=== PATIENT | female | born 1950 | race Caucasian/White ===

== ENCOUNTER 2020-08-31 16:43 | Emergency (ER) | payer MEDICARE, SELFPAY ==
[2020-08-31 16:49] VITALS: BP 148/84; PULSE 74; RESP 18; TEMP 36.3; O2SAT 98; BMI 25.9
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
[2020-08-31] MEDS: sodium chloride 0.9% 1,000 ML 999 ML IV (18:13)
[2020-08-31 18:29] VITALS: RESP 18
[2020-08-31] MEDS: morphine 4 mg/mL SDV 1 mL 2 MG IVP (18:29)
[2020-08-31 19:11] LABS: Hematocrit 45.3 % (37.0-47.0); Hemoglobin 14.5 g/dL (11.5-15.3); Mean Corpuscular Hemoglobin 30.6 pg (28.0-34.0); Mean Corpuscular Volume 95.6 fL (81-99); Mean Platelet Volume 10.6 fL (7.4-10.4); Platelet Count 367 10^3/cmm (130-400); Red Blood Count 4.74 10^6/uL (4.1-5.3); Red Cell Distribution Width 12.1 % (12.1-15.1); White Blood Count 9.7 10^3/uL (4.0-10.0)
[2020-08-31] MEDS: LORazepam 2 mg/mL INJ 1 mL 1 MG IVP (19:21)
[2020-08-31 19:22] VITALS: BP 121/62; PULSE 77; RESP 16; O2SAT 94
[2020-08-31 19:34] LABS: Alanine Aminotransferase 25 U/L (0-33); Albumin Level 4.5 g/dL (3.5-5.2); Alkaline Phosphatase 91 IU/L (35-105); Anion Gap 15.7 (5-19); Aspartate Amino Transferase 36 U/L (0-32); Blood Urea Nitrogen 13 mg/dL (8-23); Calcium 9.2 mg/dL (8.5-10.5); Carbon Dioxide 27 mmol/L (22-29); Chloride 99 mmol/L (98-107); Globulin 2.6 g/dL (1.3-4.6); Glucose 143 mg/dL (65-115); Osmolality Calculated 289 mOsm/kg (285-295); Potassium 3.7 mmol/L (3.5-5.1); Sodium 138 mmol/L (136-145); Total Bilirubin 0.9 mg/dL (0.15-1.2); Total Protein 7.1 g/dL (6.6-8.7)
[2020-08-31 19:44] LABS: Alcohol Level < 10 mg/dL (0-10)
[2020-08-31 19:54] LABS: Slide Review Slide Review Perform
[2020-08-31 19:57] LABS: Troponin T (5th) Once 7 ng/L (0-10)
[2020-08-31 20:19] LABS: Add Urine Culture? No; Add Urine Microscopic? YES; Bacteria Urine TRACE /hpf; Bilirubin Urine Neg (Negative); Blood Urine 2+ (Negative); Glucose Urine UA Norm (Normal); Ketones Urine Negative (Negative); Leukocyte Esterase Urine Negative (Negative); Mucus Urine 2+ /hpf; Nitrate Urine Negative (Negative); Protein Urine Neg (Negative); Squamous Epithelial Cell Urine 0-4 /hpf (0-5); Urine Appearance Clear (CLEAR); Urine Color Yellow (Yellow); Urobilinogen Urine Norm (Negative)
[2020-08-31 20:21] VITALS: BP 147/96
[2020-08-31 20:38] LABS: Absolute Segmented Neutrophil 5.8 10/cmm (1.6-7.1); Band Neutrophils Absolute 0.3 10^3/cmm (0.0-1.2); Lymphocytes 29 %; Monocytes Absolute 0.6 10^3/cmm (0.1-0.6); Segmented Neutrophils 60 %; Total Cells Counted 100 (0-100)
[2020-08-31 20:39] LABS: Absolute Neutrophil 6.1 10^3/cmm (1.4-6.5); Eosinophils 0 %; Platelet Estimate Normal (Normal)
--- NOTE | 2020-09-01 11:21 | DCPLANNER ---
Addendum entered by Paulina Almendarez 09/02/20 14:19: Katie from ortho called foster care case manager stating that when patient was called to schedule a follow up appointment, that patient does not want an appointment at this time. Original Note: chemical manager had message to schedule a follow up appointment for patient with ortho. chemical manager called the ortho clinic, spoke with Davey, gave clinic patients information. chemical manager was told that patients information would be printed and reviewed. Clinic will call patient with appointment information.
== END 2020-08-31 21:17 | disposition left against medical advice (07) ==
PROVIDERS: Emergency Provider Family Medicine; PCP Internal Medicine
DX: S32.001A Stable burst fracture of unspecified lumbar vertebra, initial encounter for closed fracture (principal); V49.9XXA Car occupant (driver) (passenger) injured in unspecified traffic accident, initial encounter; Z53.21 Procedure and treatment not carried out due to patient leaving prior to being seen by health care provider
CPT/HCPCS: 12345; 70450; 70486; 71250; 72125; 74176; 80053; 80307; 81001; 84484; 85007; 85025; 96361; 96374; 96375; 99282; 99284; J2060; J2270; J7030

== ENCOUNTER → 2023-02-05 13:25 | Outpatient (BNVA) | payer MEDICARE, SELFPAY | PROVIDERS: PCP Family Medicine; Visit Provider Family Medicine | DX: E53.8 Deficiency of other specified B group vitamins (principal); E03.9 Hypothyroidism, unspecified; I10 Essential (primary) hypertension; Z13.220 Encounter for screening for lipoid disorders; E55.9 Vitamin D deficiency, unspecified; Z51.81 Encounter for therapeutic drug level monitoring | CPT/HCPCS: 80053; 80061; 82306; 82607; 84439; 84443; 85025 ==

== ENCOUNTER → 2023-04-02 15:58 | Outpatient (BNVA) | payer MEDICARE, SELFPAY | PROVIDERS: PCP Family Medicine; Visit Provider Family Medicine | DX: E03.9 Hypothyroidism, unspecified (principal); M25.50 Pain in unspecified joint | CPT/HCPCS: 84439; 84443; 86038; 86141 ==

== ENCOUNTER → 2023-05-02 11:01 | Outpatient (BNVA) | payer MEDICARE, SELFPAY | PROVIDERS: PCP Family Medicine; Visit Provider Family Medicine | DX: E03.9 Hypothyroidism, unspecified (principal); I10 Essential (primary) hypertension; Z13.220 Encounter for screening for lipoid disorders; E53.8 Deficiency of other specified B group vitamins; E55.9 Vitamin D deficiency, unspecified; R53.81 Other malaise; R53.83 Other fatigue; Z51.81 Encounter for therapeutic drug level monitoring; M25.50 Pain in unspecified joint | CPT/HCPCS: 80053; 80061; 82306; 82607; 83540; 83550; 83735; 84439; 84443 ==

== ENCOUNTER → 2023-09-19 14:31 | Outpatient (BNVA) | payer MEDICARE, SELFPAY | PROVIDERS: PCP Family Medicine; Visit Provider Nurse Practitioner | DX: R30.0 Dysuria (principal) | CPT/HCPCS: 81000 ==

== ENCOUNTER → 2023-10-18 12:13 | Outpatient (BNVA) | payer MEDICARE, SELFPAY | PROVIDERS: PCP Family Medicine; Visit Provider Family Medicine | DX: E03.9 Hypothyroidism, unspecified (principal); R73.09 Other abnormal glucose; Z51.81 Encounter for therapeutic drug level monitoring | CPT/HCPCS: 80053; 83036; 84439; 84443; 85025 ==

== ENCOUNTER 2023-12-10 10:42 | Outpatient (CLI) | payer MEDICARE, SELFPAY ==
--- NOTE | 2023-12-10 10:47 | XR_ITS ---
WS: [email or web address] Exam: XR hip BI 2V wo/w pel [id number] Date/Time of Exam: 12/10/2023 10:48 AM Reason For Exam: Hip pain LEFT hip. Mild to moderate degenerative change. No fracture or dislocation. Periarticular calcificati on along the superior lateral joint. IMPRESSION: 1. Mild to moderate DJD. Periarticular calcification. 2. No fracture. RIGHT hip. Mild to moderate degenerative change. No fracture or dislocation. Normal soft tissues. IMPRESSION: 1. Mild to moderate DJD.
--- NOTE | 2023-12-10 10:47 | XR_ITS ---
WS: [email or web address] Exam: XR shoulder LT 1V [id number] Date/Time of Exam: 12/10/2023 10:48 AM Reason For Exam: Shoulder pain No fracture or dislocation. Mild DJD of the AC joint. Osteopenia. Normal soft tissues. IMPRESSION: 1. Mild AC joint DJD. Osteopenia.
--- NOTE | 2023-12-10 10:47 | XR_ITS ---
WS: [email or web address] Exam: XR knee LT 3V* [id number] Date/Time of Exam: 12/10/2023 10:48 AM Reason For Exam: Knee pain No acute fracture or dislocation. Moderate degenerative narrowing of the medial joint compartment. No joint effusion. Normal soft tissues. IMPRESSION: 1. Moderate degenerative changes in the medial joint compartment. 2. No fracture or dislocation. Kellgren-Cooper Cooper grade of 2.
--- NOTE | 2023-12-10 10:47 | XR_ITS ---
WS: [email or web address] Exam: XR shoulder RT 1V [id number] Date/Time of Exam: 12/10/2023 10:48 AM Reason For Exam: Shoulder pain No fracture or dislocation. Mild AC joint DJD. Osteopenia. IMPRESSION1. No fracture. 2. Mild AC joint DJD. Osteopenia.
--- NOTE | 2023-12-10 10:47 | XR_ITS ---
WS: [email or web address] Exam: XR knee RT 3V* [id number] Date/Time of Exam: 12/10/2023 10:48 AM Reason For Exam: Knee pain There appears to be a healing nondisplaced fracture of the upper fibula. No other fractures. There is moderate tricompartmental DJD of the RIGHT knee most marked involving the medial compartment. No aileen nt effusion identified. Normal soft tissues. IMPRESSION: 1. Healing nondisplaced upper fibular fracture. 2. Degenerative changes of the RIGHT knee.
--- NOTE | 2023-12-10 10:47 | XR_ITS ---
WS: [email or web address] Exam: XR lumbar spine 2-3V* [id number] Date/Time of Exam: 12/10/2023 10:48 AM Reason For Exam: Low back pain Compared to abdominal CT performed 08/31/2020. A healed compression fracture of L3 is noted with about 40% loss of vertebral height and no significa nt posterior displacement. No acute fractures are identified. Degenerative disc narrowing at L4-5. Sl ight spondylosis. Mild facet DJD at L4-5 and L5-S1. Moderate levoscoliosis. Osteopenia. IMPRESSION: 1. Healed biconcave compression fracture of L3 with about 40% loss in vertebral height and no signifi cant posterior displacement. 2. Degenerative changes, osteopenia and levoscoliosis.
--- NOTE | 2023-12-10 10:47 | XR_ITS ---
WS: [id number] Exam: XR cervical spine 3V* [id number] Date/Time of Exam: 12/10/2023 10:48 AM Reason For Exam: cervical neck pain No acute fracture or dislocation. There is straightening and reversal of the normal cervical C curve. Thinning of the C5-6 disc. This might be developmental. Spondylosis from C4-C7. Mild facet DJD at a ll levels. Paraspinal soft tissues are unremarkable. The odontoid is intact. Left-sided carotid arter y calcifications noted. IMPRESSION1. No acute fracture or malalignment. 2. Straightening and reversal of the normal cervical C curve. Degenerative changes.
== END 2023-12-10 10:43 | disposition home or self-care (01) ==
LOC: RAD 10:43
PROVIDERS: PCP Family Medicine; Visit Provider Family Medicine
DX: M54.2 Cervicalgia (principal); M54.50 Low back pain, unspecified; M25.511 Pain in right shoulder; M25.512 Pain in left shoulder; M25.551 Pain in right hip; M25.552 Pain in left hip; M25.561 Pain in right knee; M25.562 Pain in left knee; M47.812 Spondylosis without myelopathy or radiculopathy, cervical region; M19.012 Primary osteoarthritis, left shoulder; M19.011 Primary osteoarthritis, right shoulder; M85.812 Other specified disorders of bone density and structure, left shoulder; M85.811 Other specified disorders of bone density and structure, right shoulder; M51.36 Other intervertebral disc degeneration, lumbar region; M41.86 Other forms of scoliosis, lumbar region; Z87.81 Personal history of (healed) traumatic fracture; M16.0 Bilateral primary osteoarthritis of hip; M17.0 Bilateral primary osteoarthritis of knee
CPT/HCPCS: 72040; 72100; 73020; 73521; 73562

== ENCOUNTER → 2024-03-05 15:13 | Outpatient (BNVA) | payer MEDICARE, SELFPAY | PROVIDERS: PCP Family Medicine; Visit Provider Family Medicine | DX: Z51.81 Encounter for therapeutic drug level monitoring (principal); R06.02 Shortness of breath; E03.9 Hypothyroidism, unspecified | CPT/HCPCS: 80053; 84439; 84443; 84484; 85025; 85379 ==

== ENCOUNTER → 2024-03-23 17:00 | Outpatient (BNVA) | payer MEDICARE, SELFPAY | PROVIDERS: PCP Family Medicine; Visit Provider Emergency Medicine | DX: R30.0 Dysuria (principal); R53.1 Weakness; J06.9 Acute upper respiratory infection, unspecified | CPT/HCPCS: 81000; 87086; 87426 ==

== ENCOUNTER → 2024-04-21 12:32 | Outpatient (BNVA) | payer MEDICARE, SELFPAY | PROVIDERS: PCP Family Medicine; Visit Provider Family Medicine | DX: E03.9 Hypothyroidism, unspecified; I10 Essential (primary) hypertension; Z51.81 Encounter for therapeutic drug level monitoring | CPT/HCPCS: 80061; 83036; 84439; 84443; 85025; 86141 ==

== ENCOUNTER → 2024-06-04 14:08 | Outpatient (BNVA) | payer OTHER, SELFPAY | PROVIDERS: PCP Family Medicine | DX: R39.9 Unspecified symptoms and signs involving the genitourinary system (principal) | CPT/HCPCS: 81000 ==

== ENCOUNTER → 2024-09-25 10:05 | Outpatient (BNVA) | payer MEDICARE, SELFPAY | PROVIDERS: PCP Family Medicine; Visit Provider Registered Nurse Neonatal Intensive Care | DX: R05.9 Cough, unspecified (principal) | CPT/HCPCS: 87400 ==

== ENCOUNTER → 2024-09-29 11:18 | Outpatient (BNVA) | payer MEDICARE, SELFPAY | PROVIDERS: PCP Family Medicine; Visit Provider Family Medicine | DX: Z51.81 Encounter for therapeutic drug level monitoring (principal); Z13.6 Encounter for screening for cardiovascular disorders; E03.9 Hypothyroidism, unspecified; E55.9 Vitamin D deficiency, unspecified; E53.8 Deficiency of other specified B group vitamins; R73.09 Other abnormal glucose; Z13.220 Encounter for screening for lipoid disorders; J40 Bronchitis, not specified as acute or chronic; N39.0 Urinary tract infection, site not specified; F41.9 Anxiety disorder, unspecified; F32.A Depression, unspecified; I10 Essential (primary) hypertension; L82.1 Other seborrheic keratosis | CPT/HCPCS: 80053; 80061; 82306; 82607; 83036; 84439; 84443; 85025 ==

== ENCOUNTER → 2024-12-24 09:39 | Outpatient (BNVA) | payer MEDICARE, SELFPAY | PROVIDERS: PCP Family Medicine; Visit Provider Emergency Medicine | DX: R39.9 Unspecified symptoms and signs involving the genitourinary system (principal) | CPT/HCPCS: 81000; 87086 ==

== ENCOUNTER → 2025-04-02 08:47 | Outpatient (BNVA) | payer MEDICARE, SELFPAY | PROVIDERS: PCP Family Medicine; Visit Provider Family Medicine Adult Medicine | DX: R39.9 Unspecified symptoms and signs involving the genitourinary system (principal) | CPT/HCPCS: 81000 ==

== ENCOUNTER → 2025-05-01 14:49 | Outpatient (BNVA) | payer MEDICARE, SELFPAY | PROVIDERS: PCP Family Medicine; Visit Provider Nurse Practitioner | DX: R39.9 Unspecified symptoms and signs involving the genitourinary system (principal) | CPT/HCPCS: 81000; 87086 ==

== ENCOUNTER → 2025-05-10 11:56 | Outpatient (BNVA) | payer MEDICARE, SELFPAY | PROVIDERS: PCP Family Medicine; Visit Provider Family Medicine | DX: E53.8 Deficiency of other specified B group vitamins (principal); E03.9 Hypothyroidism, unspecified; Z51.81 Encounter for therapeutic drug level monitoring; E55.9 Vitamin D deficiency, unspecified | CPT/HCPCS: 80053; 82306; 82607; 83036; 84439; 84443; 85025 ==

== ENCOUNTER → 2025-06-16 11:16 | Outpatient (BNVA) | payer MEDICARE, SELFPAY | PROVIDERS: PCP Family Medicine; Visit Provider Registered Nurse Neonatal Intensive Care | DX: R39.9 Unspecified symptoms and signs involving the genitourinary system (principal) | CPT/HCPCS: 81000; 87086 ==